=== PATIENT | female | born 2000 | race Caucasian/White ===

== ENCOUNTER 2022-06-03 10:14 | Emergency (ER) | payer MEDICAID ==
[~2022-06-03] VITALS: Ht 160 cm
[~2022-06-03 10:14] MED LIST: FOCALIN XR30 MG PO; INTUNIV3 MG PO; Motrin,Rufen800 MG PO; NATURE'S BLEND F1 MG PO; NEXPLANON68 M2 SQ; ZOLOFT100 MG PO
[2022-06-03] MEDS ORDERED: AUGMENTIN XR 11 EACH PO (10:43)
== END 2022-06-03 10:51 | disposition home or self-care (01) ==
LOC: ED 10:14
DX: J02.9 Acute pharyngitis, unspecified (principal); Z98.890 Other specified postprocedural states

== ENCOUNTER 2022-07-14 09:54 | Emergency (ER) | payer MEDICAID ==
[~2022-07-14 09:54] MED LIST changes: +AUGMENTIN XR 11 EACH PO
[2022-07-14 10:12] LABS: BASO % 0.5 % (0.0-1.0); HEMATOCRIT 45.3 % (37.0-47.0); LYMPH # 1.3 10*3/uL (1.3-4.4); LYMPH % 14.7 % (27.0-41.0); MEAN CELL VOLUME 89.9 fl (81.0-99.0); MEAN CORPUSCULAR HGB 30.8 pg (27.0-31.0); MEAN CORPUSCULAR HGB CONC 34.2 g/dl (33.0-37.0); MEAN PLATELET VOLUME 11.2 fl (9.6-12.3); MONO # 0.3 10*3/uL (0.1-1.0); MONO % 3.8 % (3.0-9.0); NEUT % 80.8 % (47.0-73.0); PLATELET COUNT AUTOMATED 157 10*3/uL (130-400); RED BLOOD COUNT 5.04 10*6/uL (4.10-5.10); RED CELL DISTRI WIDTH 12.8 % (0-14.5); WHITE BLOOD COUNT 8.7 10*3/uL (4.8-10.8)
[2022-07-14 10:32] LABS: ALKALINE PHOSPHATASE 62 U/L (46-116); BUN 7 mg/dl (9-23); CHLORIDE 104 mmol/L (98-107); ETHYL ALCOHOL 37.4 mg/dl (<3); LIPASE 36 U/L (12-53); SGPT/ALT 23 U/L (10-49); TOTAL PROTEIN 7.4 gm/dL (6.0-8.0)
[2022-07-14 10:48] LABS: B-hCG (QUALITATIVE) NEGATIVE (NEGATIVE)
[2022-07-14] MEDS ORDERED: ONDANSETRON HYDR4 M1 PO (12:17)
== END 2022-07-14 12:45 | disposition home or self-care (01) ==
LOC: ED 09:54
PROVIDERS: Family Medicine
DX: F10.10 Alcohol abuse, uncomplicated (principal); F31.9 Bipolar disorder, unspecified; R11.2 Nausea with vomiting, unspecified; Z98.890 Other specified postprocedural states

== ENCOUNTER → 2023-05-26 | Outpatient (CLI) | payer OTHER ==
[~2023-05-26] MED LIST changes: +ONDANSETRON HYDR4 M1 PO
[2023-05-28 19:06] LABS: TB1 Ag VALUE 0.04 IU/mL (.)
== END | disposition home or self-care (01) ==
LOC: LAB 08:49
PROVIDERS: Student in an Organized Health Care Education/Training Program; ATTEND Family Medicine
DX: Z00.00 Encounter for general adult medical examination without abnormal findings (principal)

== ENCOUNTER 2023-06-20 07:29 | Emergency (ER) | payer OTHER ==
[~2023-06-20] VITALS: Ht 160 cm; Wt 90.7 kg
[2023-06-20] MEDS ORDERED: IBUPROFEN 800 MG TAB PO ONE (07:55)
[2023-06-20] MEDS ORDERED: ACETAMINOPHEN 325 MG TAB PO ONE (07:55)
[2023-06-20] MEDS ORDERED: ZITHROMAX250 MG PO (07:55)
[2023-06-20] MEDS ORDERED: Motrin,Rufen800 MG PO (07:55)
[2023-06-20] MEDS ORDERED: AZITHROMYCIN 250 MG TAB PO ONE (07:55)
== END 2023-06-20 08:02 | disposition home or self-care (01) ==
LOC: ED 07:29
DX: J02.9 Acute pharyngitis, unspecified (principal); R09.81 Nasal congestion; F31.9 Bipolar disorder, unspecified; F90.9 Attention-deficit hyperactivity disorder, unspecified type; Z98.890 Other specified postprocedural states; F10.10 Alcohol abuse, uncomplicated

== ENCOUNTER 2023-06-25 20:28 | Emergency (ER) | payer OTHER ==
[~2023-06-25] VITALS: Ht 160 cm; Wt 90.7 kg
[~2023-06-25 20:28] MED LIST changes: +ZITHROMAX250 MG PO
[2023-06-25] MEDS ORDERED: Amoxicillin/Clavulanate Pota 875 MG TAB PO ONE (21:25)
[2023-06-25] MEDS ORDERED: Ondansetron Hydrochloride 4 MG TAB SL ONE (21:25)
[2023-06-25] MEDS ORDERED: IBUPROFEN 400 MG TAB PO ONE (21:25)
[2023-06-25] MEDS ORDERED: ONDANSETRON4 MG SL (21:27)
[2023-06-25] MEDS ORDERED: AMOX-CLAV 875-1 EACH PO (21:27)
== END 2023-06-25 22:17 | disposition home or self-care (01) ==
LOC: ED 20:28
DX: H66.92 Otitis media, unspecified, left ear (principal); R11.10 Vomiting, unspecified; Z79.2 Long term (current) use of antibiotics; Z79.899 Other long term (current) drug therapy

== ENCOUNTER 2023-08-20 16:34 | Emergency (ER) | payer OTHER ==
[~2023-08-20] VITALS: Ht 175.2 cm; Wt 90.7 kg
[~2023-08-20 16:34] MED LIST changes: +AMOX-CLAV 875-1 EACH PO; +ONDANSETRON4 MG SL
[2023-08-20 16:59] LABS: BASO % 0.2 % (0.0-1.0); EOS # 0.1 10*3/uL (0.0-0.4); EOS % 1.1 % (1.0-4.0); HEMATOCRIT 43.5 % (37.0-47.0); LYMPH # 2.5 10*3/uL (1.3-4.4); LYMPH % 19.9 % (27.0-41.0); MEAN CELL VOLUME 93.5 fl (81.0-99.0); MEAN CORPUSCULAR HGB 29.9 pg (27.0-31.0); MEAN PLATELET VOLUME 11.4 fl (9.6-12.3); MONO # 0.4 10*3/uL (0.1-1.0); MONO % 3.5 % (3.0-9.0); NEUT # 9.5 10*3/uL (2.3-7.9); PLATELET COUNT AUTOMATED 184 10*3/uL (130-400); RED BLOOD COUNT 4.65 10*6/uL (4.10-5.10); RED CELL DISTRI WIDTH 12.5 % (0-14.5); WHITE BLOOD COUNT 12.7 10*3/uL (4.8-10.8)
[2023-08-20 17:12] LABS: ACT PARTIAL THROMBO TIME 25.9 SECONDS (20.0-32.1)
[2023-08-20 17:21] LABS: ALKALINE PHOSPHATASE 65 U/L (46-116); BUN 10 mg/dl (9-23); CHLORIDE 101 mmol/L (98-107); LIPASE 123 U/L (12-53); POTASSIUM 3.7 mmol/L (3.4-5.1); SGPT/ALT 49 U/L (5-49)
[2023-08-20 17:25] LABS: BETA-HCG, QUANT < 3.0 mIU/mL (3-10); ETHYL ALCOHOL < 3.0 mg/dl (<3)
[2023-08-20] MEDS ORDERED: SODIUM CHLORIDE 0.9% 1,000 ML IV ONE (17:45)
[2023-08-20] MEDS ORDERED: Ondansetron Hydrochloride 4 MG/2 ML VIAL IV ONE (20:10)
[2023-08-20 20:58] LABS: BILIRUBIN Negative (Negative); BLOOD Negative (Negative); CLARITY Turbid (Clear); COLOR Yellow (Yellow); GLUCOSE Negative (Negative); KETONE Negative (Negative); LEUKO ESTERASE Trace (Negative); NITRITE Negative (Negative); PH 5.5 (4.5-8.0); SPECIFIC GRAVITY 1.025 (1.001-1.030)
[2023-08-20 21:06] LABS: EPITHELIAL CELLS 16-20; MUCOUS 4+
[2023-08-20 21:13] LABS: URINE AMPHETAMINES Negative (1000ng/ml); URINE BARBITURATES Negative (200ng/ml); URINE BENZODIAZEPINES Negative (200ng/ml); URINE CANNABINOIDS (THC) Positive (50ng/ml); URINE COCAINE Negative (300ng/ml); URINE METHADONE Negative (300ng/ml); URINE OPIATES Negative (300ng/ml); URINE PHENCYCLIDINE Negative (25ng/ml)
== END 2023-08-20 22:14 | disposition home or self-care (01) ==
LOC: ED 16:34
PROVIDERS: Internal Medicine
DX: T40.411A Poisoning by fentanyl or fentanyl analogs, accidental (unintentional), initial encounter (principal); R73.9 Hyperglycemia, unspecified; F31.9 Bipolar disorder, unspecified; F90.9 Attention-deficit hyperactivity disorder, unspecified type; Z98.890 Other specified postprocedural states; F10.10 Alcohol abuse, uncomplicated; Y92.89 Other specified places as the place of occurrence of the external cause

== ENCOUNTER 2023-08-22 09:58 | Emergency (ER) | payer OTHER ==
[~2023-08-22] VITALS: Ht 160 cm; Wt 86.2 kg
[2023-08-22 10:46] LABS: BASO % 0.4 % (0.0-1.0); MONO # 0.4 10*3/uL (0.1-1.0); RED CELL DISTRI WIDTH 12.3 % (0-14.5)
[2023-08-22 10:51] LABS: EOS # 0.1 10*3/uL (0.0-0.4); EOS % 0.7 % (1.0-4.0); HEMATOCRIT 43.8 % (37.0-47.0); LYMPH # 1.9 10*3/uL (1.3-4.4); LYMPH % 27.7 % (27.0-41.0); MEAN CORPUSCULAR HGB CONC 33.3 g/dl (33.0-37.0); MEAN PLATELET VOLUME 11.6 fl (9.6-12.3); MONO % 5.6 % (3.0-9.0); NEUT # 4.6 10*3/uL (2.3-7.9); NEUT % 65.3 % (47.0-73.0); PLATELET COUNT AUTOMATED 188 10*3/uL (130-400); RED BLOOD COUNT 4.86 10*6/uL (4.10-5.10)
[2023-08-22 10:53] LABS: MEAN CELL VOLUME 90.1 fl (81.0-99.0)
[2023-08-22 11:17] LABS: ALKALINE PHOSPHATASE 66 U/L (46-116); BUN 7 mg/dl (9-23); CHLORIDE 104 mmol/L (98-107); LIPASE 39 U/L (12-53); POTASSIUM 3.8 mmol/L (3.4-5.1); SGPT/ALT 35 U/L (5-49); TOTAL PROTEIN 7.5 gm/dL (6.0-8.0)
[2023-08-22 11:22] LABS: ETHYL ALCOHOL < 3.0 mg/dl (<3)
[2023-08-22 12:58] LABS: URINE AMPHETAMINES Negative (1000ng/ml); URINE BARBITURATES Negative (200ng/ml); URINE BENZODIAZEPINES Negative (200ng/ml); URINE CANNABINOIDS (THC) Positive (50ng/ml); URINE COCAINE Negative (300ng/ml); URINE METHADONE Negative (300ng/ml); URINE OPIATES Negative (300ng/ml); URINE PHENCYCLIDINE Negative (25ng/ml)
[2023-08-22] MEDS ORDERED: MAGNESIUM CITRATE 296 ML BOT PO ONE (13:25)
== END 2023-08-22 13:35 | disposition home or self-care (01) ==
LOC: ED 09:58
PROVIDERS: Internal Medicine
DX: K59.00 Constipation, unspecified (principal); F31.9 Bipolar disorder, unspecified; F90.9 Attention-deficit hyperactivity disorder, unspecified type; Z98.890 Other specified postprocedural states; F10.10 Alcohol abuse, uncomplicated

== ENCOUNTER 2023-12-28 08:16 | Emergency (ER) | payer OTHER ==
[2023-12-28] MEDS ORDERED: VITAMIN B121000 MC3 PO (08:29)
[2023-12-28] MEDS ORDERED: IBUPROFEN 600 MG TAB PO ONE (10:10)
== END 2023-12-28 11:03 | disposition left against medical advice (07) ==
LOC: ED 08:16
DX: M62.838 Other muscle spasm (principal); M54.12 Radiculopathy, cervical region; F31.9 Bipolar disorder, unspecified; F90.9 Attention-deficit hyperactivity disorder, unspecified type; F10.10 Alcohol abuse, uncomplicated; Z53.29 Procedure and treatment not carried out because of patient's decision for other reasons; Z98.890 Other specified postprocedural states

== ENCOUNTER 2024-09-17 19:44 | Emergency (ER) | payer OTHER ==
[~2024-09-17] VITALS: Ht 160 cm; Wt 90.7 kg
[~2024-09-17 19:44] MED LIST changes: +VITAMIN B121000 MC3 PO
[2024-09-17] MEDS ORDERED: Tdap Vaccine 0.5 ML SYR (Adult Vaccine) IM ONE (20:15)
[2024-09-17] MEDS ORDERED: DERMABOND 1 EA APPL T ONE (20:17)
[2024-09-18] MEDS ORDERED: MELOXICAM15 MG PO (07:56)
== END 2024-09-17 20:01 | disposition home or self-care (01) ==
LOC: ED 19:44
DX: S61.412A Laceration without foreign body of left hand, initial encounter (principal); W18.39XA Other fall on same level, initial encounter; Y93.89 Activity, other specified; Y92.89 Other specified places as the place of occurrence of the external cause; Y99.8 Other external cause status

== ENCOUNTER 2024-09-18 07:20 | Emergency (ER) | payer OTHER ==
[~2024-09-18] VITALS: Ht 160 cm; Wt 90.7 kg
[2024-09-18] MEDS ORDERED: Acetaminophen/Oxycodone 5 MG/325 MG TABLET PO ONE (07:55)
[2024-09-18] MEDS ORDERED: MELOXICAM15 MG PO (07:56)
== END 2024-09-18 15:36 | disposition home or self-care (01) ==
LOC: ED 07:20
DX: S63.613A Unspecified sprain of left middle finger, initial encounter (principal); X58.XXXA Exposure to other specified factors, initial encounter; Y93.89 Activity, other specified; Y92.89 Other specified places as the place of occurrence of the external cause; Y99.8 Other external cause status

== ENCOUNTER 2024-11-03 14:22 | Emergency (ER) | payer OTHER ==
[~2024-11-03] VITALS: Ht 160 cm; Wt 90.7 kg
[~2024-11-03 14:22] MED LIST changes: +MELOXICAM15 MG PO
[2024-11-03] MEDS ORDERED: METHOCARBAMOL 750 MG TAB PO ONE (17:45)
[2024-11-03] MEDS ORDERED: METHOCARBAMOL750 M1 PO (17:49)
[2024-11-03] MEDS ORDERED: NAPROSYN500 MG PO (17:49)
== END 2024-11-03 18:14 | disposition home or self-care (01) ==
LOC: ED 14:22
DX: S16.1XXA Strain of muscle, fascia and tendon at neck level, initial encounter (principal); F31.9 Bipolar disorder, unspecified; Z98.890 Other specified postprocedural states; V89.2XXA Person injured in unspecified motor-vehicle accident, traffic, initial encounter; Y93.89 Activity, other specified; Y92.488 Other paved roadways as the place of occurrence of the external cause; Y99.8 Other external cause status

== ENCOUNTER 2025-03-16 18:53 | Emergency (ER) | payer SELFPAY ==
[~2025-03-16] VITALS: Ht 160 cm; Wt 80.7 kg
[~2025-03-16 18:53] MED LIST changes: +METHOCARBAMOL750 M1 PO; +NAPROSYN500 MG PO
[2025-03-16] MEDS ORDERED: METHOCARBAMOL 500 MG TAB PO ONE (19:50)
[2025-03-16] MEDS ORDERED: METHOCARBAMOL750 M1 PO (20:38)
[2025-03-16] MEDS ORDERED: MELOXICAM15 MG PO (20:38)
[2025-03-16] MEDS ORDERED: PREDNISONE20 M1 PO (20:38)
== END 2025-03-16 21:23 | disposition home or self-care (01) ==
LOC: ED 18:53
DX: M54.32 Sciatica, left side (principal); F90.9 Attention-deficit hyperactivity disorder, unspecified type; F31.9 Bipolar disorder, unspecified